=== PATIENT | female | born 1965 | race Hispanic/Latino ===

== ENCOUNTER 2018-01-22 05:23 | Emergency (ER) | payer BC, OTHER ==
[2018-01-22] MEDS ORDERED: CYCLOBENZAPRINE HCL 10 MG TABLET ONE (05:43)
[2018-01-22] MEDS ORDERED: KETOROLAC TROMETHAMINE 60 MG/2 ML VIAL ONE (05:44)
[2018-01-22] MEDS ORDERED: DIAZEPAM 5 MG TABLET ONE (05:44)
[2018-01-22 05:55] LABS: APPEARANCE,URINE Clear (CLEAR); BILIRUBIN,URINE Negative (NEGATIVE); COLOR,URINE Yellow (YELLOW); GLUCOSE, URINE (UA) Negative (NEGATIVE); KETONES,URINE Negative (NEGATIVE); LEUKOCYTE ESTERASE ,URINE Negative (NEGATIVE); NITRATE,URINE Negative (NEGATIVE); OCCULT BLOOD,URINE Trace (NEGATIVE); PH,URINE 7.5 (5.0-8.0); PROTEIN,URINE Negative (NEGATIVE)
[2018-01-22 06:10] LABS: BACTERIA,URINE Few /HPF (None Seen); SQUAMOUS EPITHELIAL CELL,UR 0-2 /HPF (0-2); WBC,URINE 0-1 /HPF (0-1)
== END 2018-01-22 06:40 | disposition home or self-care (01) ==
LOC: EDH 05:23
DX: M54.5 Low back pain (principal); Z90.710 Acquired absence of both cervix and uterus; Z98.890 Other specified postprocedural states
CPT/HCPCS: 72100; 81001; 96372; 99285; J1885

== ENCOUNTER 2024-11-02 19:45 | Emergency (ER) | payer BC, OTHER ==
[~2024-11-02] VITALS: Ht 160 cm; Wt 80.7 kg
--- NOTE | 2024-11-02 20:00 | ERN ---
ED Note History of Present Illness Stated Complaint: GENERAL BODY WEAKNESS Chief Complaint: Fatigue Time Seen by MD: 19:52 Dictation: PATIENT IS A 59-YEAR-OLD FEMALE HERE WITH COMPLAINTS OF GENERALIZED BODY WEAKNESS COUGH SHE HAS HAD FOR SEVERAL DAYS. SHE STATES SHE JUST GOT BACK FROM A TRIP TO [place] AND WAS SICK WHILE SHE WAS OVER THERE HOWEVER WAS NOT SEEN BY A DOCTOR OR URGENT CARE. SHE SAID SHE FEELS VERY FATIGUED SAYS COUGH IS NONPRODUCTIVE. STATES SHE JUST DOES NOT FEEL GOOD. SHE STATES SHE HAS A HISTORY OF HYPERTENSION AND STAGE 3 CHRONIC KIDNEY DISEASE. Allergies: Coded Allergies: No Known Drug Allergies (Unverified Allergy, Unknown, 11/02/24) Past Medical History Past Medical History: Diabetes-Type II, Hypertension Additional Past Medical Hx: CKD Surgical History: None History: Not Applicable RN Note Reviewed/Agreed w/PFSH: Yes Review of System Dictation CONSTITUTIONAL: NEGATIVE EXCEPT FOR HPI FATIGUE HEAD/FACE: NEGATIVE EXCEPT FOR HPI EENT: NEGATIVE EXCEPT FOR HPI RESPIRATORY: NEGATIVE EXCEPT FOR HPI GASTROINTESTINAL/ABDOMINAL: NEGATIVE EXCEPT FOR HPI GENITOURINARY: NEGATIVE EXCEPT FOR HPI MUSCULOSKELETAL: NEGATIVE EXCEPT FOR HPI INTEGUMENTARY: NEGATIVE EXCEPT FOR HPI NEUROLOGICAL/PSYCH: NEGATIVE EXCEPT FOR HPI HEMATOLOGIC/LYMPHATIC: NEGATIVE EXCEPT FOR HPI ALL SYSTEMS NEGATIVE, EXCEPT NOTED ABOVE. 13 POINT REVIEW OF SYSTEMS ASSESSED AND ALL NEGATIVE EXCEPT FOR ABOVE. Initial Vital Sign VS Vital Signs Date Time Temp Pulse Resp B/P (MAP) Pulse Ox O2 Delivery O2 Flow Rate FiO2 11/02/24 19:48 99.7 121 20 162/84 97 Room Air 11/02/24 20:27 0 21 Physical Exam Dictation VITAL SIGNS REVIEWED GENERAL APPEARANCE: ALERT, ORIENTED X 3, NO ACUTE DISTRESS, WELL DEVELOPED, NOURISHED. HEAD AND FACE: NON-TRAUMATIC. EYES: PERRL, PINK CONJUNCTIVAS, EYELID NO TRAUMA, ANTERIOR CHAMBER WITH ARCUS SENILIS. EARS: PINNAS INTACT AND NO SIGNS OF TRAUMA OR ERYTHEMA EAR CANALS CLEAR AND NO DISCHARGE TM NO ERYTHEMA NOSE: NO DISCHARGE, NO BLEEDING. OROPHARYNX: MOUTH NORMAL, TONGUE PINK, PHARYNX CLEAR MILD PHARYNGEAL ERYTHEMA, TONSILS NO EXUDATES, NO ABSCESSES NOTED, MUCOUS MEMBRANE MOIST UVULA MIDLINE, VOICE IS CLEAR NECK: SUPPLE, NON-TENDER, NO THYROMEGALY, NO MASSES, NO JVD, NO BRUITS BREAST:DEFERRED CHEST:NO TENDERNESS, NO CREPITUS, NO PARADOXICAL MOVEMENT, NO RETRACTIONS LUNGS:CLEAR, WELL-VENTILATED, SYMMETRIC, NO RALES, NO WHEEZING, NO RHONCHI, NO S TRIDOR, GOOD BREATH SOUNDS BILATERALLY HEART: REGULAR RATE, REGULAR RHYTHM, NO MURMUR, NO GALLOPS VASCULAR: NO PERIPHERAL EDEMA, ABDOMEN: SOFT, POSITIVE BOWEL SOUNDS, NONDISTENDED, NO GUARDING, NONTENDER, NO REBOUND, NO MASSES NO HEPATOMEGALY, NO SPLENOMEGALY, NO BENAVIDEZ'S SIGN, NO HERNIAS. RECTAL: DEFERRED GENITAL: DEFERRED NEUROLOGICAL: NORMAL SPEECH, MOTOR FUNCTION INTACT, SENSORY FUNCTION INTACT MUSCULOSKELETAL: NECK NONTENDER, FULL RANGE OF MOTION, BACK NONTENDER, FULL RANGE OF MOTION, EXTREMITIES: NONTENDER, FULL RANGE OF MOTION SKIN: COLOR PINK, DRY, NO TURGOR, NO RASH, NO LACERATIONS, NO ABRASIONS, NO CONTUSIONS. LYMPHATIC: DEFERRED Results (Laboratory/Radiology) Laboratory/Radiology Laboratory Tests Test 11/02/24 19:50 11/02/24 20:02 11/02/24 20:18 Influenza Type A Antigen Negative For Type A Influenza Type B Antigen Negative For Type B SARS-CoV-2 Antigen (Rapid) PRESUMPTIVE NEGATIVE Group A Streptococcus Rapid negative (NEGATIVE) Urine Color LIGHT-YELLOW (YELLOW) Urine Appearance CLEAR (CLEAR) Urine pH 6.0 (5.0-8.0) Urine Specific [place] 1.018 (1.001-1.031) Urine Protein NEGATIVE mg/dL (NEGATIVE) Urine Glucose (UA) >=1000 mg/dL (NEGATIVE) H Urine Ketones NEGATIVE mg/dL (NEGATIVE) Urine Occult Blood NEGATIVE (NEGATIVE) Urine Nitrate NEGATIVE (NEGATIVE) Urine Bilirubin NEGATIVE mg/dL (NEGATIVE) Urine Urobilinogen 0.2 mg/dL (0.2-1.0) Urine Leukocyte Esterase 75 [place]/uL (NEGATIVE) H Urine RBC 6-10 /HPF (0-1) H Urine WBC 6-10 /HPF (0-1) H Urine Squamous Epithelial Cells RARE /HPF (0-2) Urine Bacteria MOD /HPF (None Seen) White Blood Count 11.0 K/uL (4.8-10.8) H Red Blood Count 4.60 MIL/uL (4.00-5.50) Hemoglobin 12.8 g/dL (12.0-16.0) Hematocrit 40.0 % (36-48) Mean Corpuscular Volume 87.0 fL (79-99) Mean Corpuscular Hemoglobin 27.8 pg (27.0-33.0) Mean Corpuscular Hemoglobin Concent 32.0 g/dL (32.0-36.0) Red Cell Distribution Width 14.7 % (11.0-15.5) Platelet Count 196 K/uL (130-400) Mean Platelet Volume 11.6 fL (7.5-10.5) H Immature Granulocyte % (Auto) 0.3 % (0-1) Neutrophils (%) (Auto) 71.7 % (40.0-77.0) Lymphocytes (%) (Auto) 17.6 % (21.0-51.0) L Monocytes (%) (Auto) 7.9 % (3.0-13.0) Eosinophils (%) (Auto) 2.0 % (0.0-8.0) Basophils (%) (Auto) 0.5 % (0.0-5.0) Neutrophils # (Auto) 7.9 K/uL (1.8-7.7) H Lymphocytes # (Auto) 1.9 K/uL (1.0-4.8) Monocytes # (Auto) 0.9 K/uL (0.1-1.0) Eosinophils # (Auto) 0.22 K/uL (0.00-0.70) Basophils # (Auto) 0.06 K/uL (0.00-0.20) Absolute Immature Granulocyte (auto 0.03 K/uL (0-1) Nucleated Red Blood Cells 0.0 % (0.0-0.19) Sodium Level 142 mmol/L (136-145) Potassium Level 3.7 mmol/L (3.5-5.1) Chloride Level 103 mmol/L (101-111) Carbon Dioxide Level 28 mmol/L (21-32) Blood Urea Nitrogen 20 mg/dL (7-18) H Creatinine 1.0 mg/dL (0.5-1.0) Glomerular Filtration Rate Calc 64 mL/min (>90) Random Glucose 104 mg/dL (70-105) Total Calcium 9.4 mg/dL (8.5-10.1) Magnesium Level 2.10 mg/dL (1.80-2.40) Troponin I High Sensitivity < 4 ng/L (4-50) L B-Type Natriuretic Peptide < 5 pg/mL (0-100) 2135/CHEST X-RAY NEGATIVE Labs Reviewed?: Yes EKG Comment: SINUS TACHYCARDIA/HEART RATE 109/AXIS NORMAL/NONSPECIFIC CHANGES ED Course ED Course Orders Procedure Category Date Status Time Covid19 (Sars Antigen LAB 11/02/24 Complete Rapid) 19:54 Influenza Type A & B, LAB 11/02/24 Complete Rapid 19:54 Rapid (Group A Strep) LAB 11/02/24 Complete 19:54 12 Lead Ekg Tracing- EKG 11/02/24 Logged Technical 19:54 Cbc With Differential LAB 11/02/24 Complete 19:54 B-Type Natriuretic LAB 11/02/24 Complete Peptide 19:54 Chest 1vw RAD 11/02/24 Resulted 19:54 12 Lead Ekg Tracing- EKG 11/02/24 Logged Technical 19:54 Magnesium LAB 11/02/24 Complete 19:54 Troponin I High LAB 11/02/24 Complete Sensitivity 19:54 Urinalysis Profile LAB 11/02/24 Complete 19:54 Basic Metabolic Panel LAB 11/02/24 Complete 19:54 Rapid (Group A Strep) LAB 11/02/24 Logged 19:58 Culture Urine KENDRA 11/02/24 In Process 20:18 Ceftriaxone 1g Vial PHA 11/02/24 Complete (Rocephine 1g Inj) 21:30 0.9%Nacl 1000ml (Ns PHA 11/02/24 Complete 1000ml) 22:00 Current Medications Medications (Trade) Dose Ordered Sig/Charo Route PRN Reason Start Time Stop Time Status Last Admin Dose Admin Ceftriaxone Sodium (ROCEphine 1G INJ) 1 gm ONCE ONCE IVP 11/02/24 21:30 11/02/24 21:32 DC 11/02/24 21:46 Sodium Chloride 1,000 ml @ 0 mls/hr ONCE ONCE IV 11/02/24 22:00 11/02/24 22:01 DC 11/02/24 21:46 Vital Signs Date Time Temp Pulse Resp B/P (MAP) Pulse Ox O2 Delivery O2 Flow Rate FiO2 11/02/24 21:30 98.2 102 18 117/70 95 Room Air* 0 21 11/02/24 20:27 98.2 104 20 119/74 97 Room Air* 0 21 11/02/24 19:48 99.7 121 20 162/84 97 Room Air 2300/PATIENT DISCHARGED HOME WITH DEHYDRATION AND A ACUTE CYSTITIS WITH HEMATURIA. SHE WAS GIVEN ROCEPHIN AND FLUIDS. 1 L NORMAL SALINE STATES SHE FEELS BETTER AFTER TREATMENT HEART Score Response (Comments) Value EKG: Repolarization changes 1 Age: 45-65yrs (+1) 1 Risk Factors: 1-2 risk factors (+1) 1 Initial Troponin: Normal limit (0) 0 Total 3 Medical Decision Making MDM MDM: DIFFERENTIAL DIAGNOSIS: PNEUMONIA/BRONCHITIS/ACS/AMI/ELECTROLYTE IMBALANCE/DEHYDRATION/SARS/INFLUENZA/UTI RATIONALE: TESTS CONSIDERED AND ORDERED SECONDARY TO SHARED DECISION MAKING INCLUDE: LABS/RADIOLOGY PREVIOUS OUTSIDE RECORDS REVIEWED: OLD ER VISITS. RISK OF COMPLICATION AND/OR MORBIDITY OR MORTALITY OF PATIENT MANAGEMENT: NONE NO MEDICATIONS-PER MEDICATION RECONCILIATION NEED FOR HOSPITALIZATION: PATIENT DOES NOT MEET CRITERIA FOR HOSPITALIZATION. NONE NEED FOR EMERGENCY MAJOR/MINOR SURGERY: NO THERE ARE NO SOCIAL CONCERNS WITH THIS PATIENT. PRESCRIPTION DRUG MANAGEMENT AUGMENTIN/ALBUTEROL/MEDROL PRESCRIPTIONS WILL INCLUDE SYMPTOMATIC CARE PATIENT'S PRIOR EXTERNAL MEDICAL RECORDS FROM OTHER ER VISITS WERE REVIEWED BY ME INDICATED. PRIOR TESTING AND RESULTS FROM PREVIOUS VISITS WERE REVIEWED. PRIOR TESTS WERE TAKEN INTO ACCOUNT WITH MEDICAL DECISION MAKING AND RESOURCE UTILIZATION, INDEPENDENT HISTORIAN/HISTORIANS WERE USED TO OBTAIN COMPLETE MEDICAL HISTORY. I INDEPENDENTLY INTERPRETED THE TEST THAT WERE PERFORMED, RESULTS WERE REVIEWED BY ME AND CONSIDERED FINDINGS ON RADIOLOGY IF ORDERED. MEDICAL MANAGEMENT AND EXAMINATION INTERPRETATION DISCUSSIONS WERE HAD BY ME WITH OTHER QUALIFIED HEALTHCARE PROFESSIONALS INDICATED FOR THE PATIENT'S CARE. DX & DISP Disposition: Discharge Departure Impression: Primary Impression: Acute cystitis Additional Impressions: Dehydration, Viral URI with cough Condition: Stable Scripts Amoxicillin/Potassium Clav (Amox Tr-K Clv 875-125 mg Tab) 875 Mg-125 Mg Tablet 1 EACH PO BID for 5 Days, #10 TAB 0 Refills Prov: OSMIN LEUNG [employer]IN[employer] 3/30/25 Benzonatate (Tessalon Perles) 100 Mg Cap 200 MG PO TID for cough, #60 CAP 0 Refills Prov: OSMIN LEUNG [employer] CO[employer]IN[employer] 3/30/25 Methylprednisolone (Medrol) 4 Mg Tab.ds.pk 1 TAB PO AD for 6 Days, #21 TAB 0 Refills 6 on day 1 then reduce by one tablet daily until gone Prov: OSMIN LEUNG [employer] CO[employer]INATOR 3/30/25 Albuterol Sulfate (Ventolin Hfa/Proventil Hfa/Proair Hfa) 90 Mcg Puff 2 PUFF IH Q4H for WHEEZING, #1 INHALER 0 Refills Prov: OSMIN LEUNG NP 11/02/24 Additional Instructions: FOLLOW-UP WITH PRIMARY CARE PROVIDER IN 1 TO 2 DAYS. TAKE MEDICATIONS DIRECTED HERE IN THE EMERGENCY ROOM. OKAY TO CONTINUE HOME MEDICATIONS UNLESS OTHERWISE DISCUSSED DURING YOUR VISIT IN THE EMERGENCY ROOM TODAY. RETURN TO YOUR NEAREST EMERGENCY ROOM IF SYMPTOMS WORSEN OR IF THERE IS NO IMPROVEMENT. CALL 911 IF YOU NEED IMMEDIATE ASSISTANCE. TAKE TYLENOL OR MOTRIN [id number] NEEDED AND IF NO CONTRAINDICATIONS ARE PRESENT. INCREASE ORAL HYDRATION. A WOUND CULTURE OR URINE CULTURE WAS ORDERED HERE IN THE EMERGENCY ROOM DEPARTMENT PLEASE FOLLOW-UP WITH PRIMARY CARE PROVIDER AND ADVISE THEM TO GET REPEAT PORTS FROM OUR FACILITY. IF YOU HAD ANY ANGEL WRAP/SPLINTS THAT WERE APPLIED HERE, PLEASE DO NOT REMOVE THEM UNTIL YOU SEE YOUR PRIMARY CARE OR SPECIALTY. USE ALBUTEROL EVERY 4 HOURS WHILE AWAKE FOR THE NEXT TWO DAYS. TAKE ANTIBIOTICS DIRECTED UNTIL GONE. TAKE MEDROL DOSEPAK DIRECTED UNTIL GONE. SEE YOUR PRIMARY CARE DOCTOR FOR FOLLOW UP INCREASE YOUR WATER INTAKE Referrals: SELF,REFERRAL (PCP) Time of Disposition: 23:02 I have reviewed the case, and I agree with, Diagnosis and Plan OSMIN LEUNG NP Nov 02, 2024 20:00
[2024-11-02 20:06] LABS: RAPID GROUP A STREP negative (NEGATIVE)
[2024-11-02 20:16] LABS: COVID19 (SARS ANTIGEN RAPID) PRESUMPTIVE NEGATIVE (NEGATIVE); INFLUENZA TYPE A Negative For Type A (NEGATIVE); INFLUENZA TYPE B Negative For Type B (NEGATIVE)
[2024-11-02 20:17] LABS: APPEARANCE,URINE CLEAR (CLEAR); BILIRUBIN,URINE NEGATIVE (NEGATIVE); COLOR,URINE LIGHT-YELLOW (YELLOW); GLUCOSE, URINE (UA) >=1000 mg/dL (NEGATIVE); KETONES,URINE NEGATIVE (NEGATIVE); LEUKOCYTE ESTERASE ,URINE 75 Leu/uL (NEGATIVE); NITRATE,URINE NEGATIVE (NEGATIVE); OCCULT BLOOD,URINE NEGATIVE (NEGATIVE); PROTEIN,URINE NEGATIVE (NEGATIVE); UROBILINOGEN,URINE 0.2 mg/dL (0.2-1.0)
[2024-11-02 20:18] LABS: ADD UA MICROSCOPIC YES
[2024-11-02 20:20] LABS: BACTERIA,URINE MOD /HPF (None Seen); MUCUS,URINE RARE LPF (None Seen); SQUAMOUS EPITHELIAL CELL,UR RARE /HPF (0-2)
[2024-11-02 20:29] LABS: BASOPHILS # (AUTO) 0.06 K/uL (0.00-0.20); BASOPHILS % (AUTO) 0.5 % (0.0-5.0); EOSINOPHILS # (AUTO) 0.22 K/uL (0.00-0.70); IMMATURE GRANULOCYTE ABSOLUTE 0.03 K/uL (0-1); LYMPHOCYTES # (AUTO) 1.9 K/uL (1.0-4.8); LYMPHOCYTES % (AUTO) 17.6 % (21.0-51.0); MEAN CORPUSCULAR HEMOGLOBIN 27.8 pg (27.0-33.0); MONOCYTES # (AUTO) 0.9 K/uL (0.1-1.0); MONOCYTES % (AUTO) 7.9 % (3.0-13.0); NEUTROPHILS # (AUTO) 7.9 K/uL (1.8-7.7); NEUTROPHILS % (AUTO) 71.7 % (40.0-77.0); PLATELET COUNT (AUTO) 196 K/uL (130-400); RED CELL DISTRIBUTION WIDTH 14.7 % (11.0-15.5)
[2024-11-02 20:37] LABS: POTASSIUM 3.7 mmol/L (3.5-5.1)
[2024-11-02 20:46] LABS: MAGNESIUM 2.1 mg/dL (1.80-2.40)
[2024-11-02 21:22] LABS: B-TYPE NATRIURETIC PEPTIDE < 5 pg/mL (0-100)
--- NOTE | 2024-11-02 21:42 | HMCIMG ---
INDICATION: CHEST PAIN TECHNIQUE: CHEST 1VW COMPARISON: None FINDINGS AND IMPRESSION: No acute consolidation or pleural effusion. Cardiac silhouette is within normal limits. Mild degenerative changes of the spine. The visualized upper abdomen appears unremarkable.
[2024-11-02] MEDS: cefTRIAXone 1G VIAL IVP ONE (21:46)
[2024-11-02] MEDS: 0.9%NACL 1000ML 1,000 ML IV ONE (21:46)
[2024-11-02] MEDS ORDERED: BENZ-39 PO (23:03)
[2024-11-02] MEDS ORDERED: METH4TAB3 PO (23:03)
[2024-11-02] MEDS ORDERED: AMOX1TAB16 PO (23:03)
[2024-11-02] MEDS ORDERED: ALBUHFA IH (23:03)
[2024-11-02] MEDS: Solu-medROL 125MG VIAL IVP ONE (23:18)
[2024-11-02 23:26] VITALS: BP 118/69; PULSE 89; RESP 18; TEMP 98.5; O2SAT 96
--- NOTE | 2024-11-03 07:55 | EKG ---
[facility] Test Date: 2024-11-02 Test Time: 19:56:50 Pat Name: OPAL CULLEN Department: ED Room: Gender: Female Tiler: [phone] : [id number] Requested By: JOSE ALEJANDRO COATS Order Number: [id number] Reading MD: Measurements Intervals [place] Rate: 109 P: 38 MT: 144 QRS: -41 QRSD: 85 T: 22 QT: 324 QTc: 438 Interpretive Statements Sinus tachycardia Inferior infarct, old No previous ECG available for comparison Please click the below link to view image of tracing.
== END 2024-11-02 23:28 | disposition home or self-care (01) ==
LOC: EDH 19:45
DX: I12.9 Hypertensive chronic kidney disease with stage 1 through stage 4 chronic kidney disease, or unspecified chronic kidney disease (principal); E11.22 Type 2 diabetes mellitus with diabetic chronic kidney disease; N18.9 Chronic kidney disease, unspecified; N30.00 Acute cystitis without hematuria; E86.0 Dehydration; R05.9 Cough, unspecified; B97.89 Other viral agents as the cause of diseases classified elsewhere; J06.9 Acute upper respiratory infection, unspecified; Z20.822 Contact with and (suspected) exposure to COVID-19
CPT/HCPCS: 99284; 96365; 71045; 96375; 87426; 83735; 84484; 80048; 83880; 85025; 87086; 87880; 87804 ×2; 81001; 36415; 93005; J2919; J7030; J0696